=== PATIENT | female | born 1980 | race Caucasian/White ===

== ENCOUNTER 2020-08-16 17:00 | Emergency (ER) | payer MEDICAID, OTHER ==
[~2020-08-16] VITALS: Ht 157.5 cm; Wt 57.6 kg
[2020-08-16 18:10] LABS: Basophils # (auto) 0 10 ^3/uL (0-0.2); Basophils % (auto) 0.6 % (0.0-2.0); Eosinophils # (auto) 0.1 10 ^3/uL (0-0.8); Hematocrit 38.9 % (36.0-46.0); Hemoglobin 13.1 g/dL (12.2-16.2); Lymphocytes # (auto) 2.1 10 ^3/uL (0.4-5.4); Lymphocytes % (auto) 37.6 % (10.0-50.0); Mean Corpuscular Hemoglobin 34.9 pg (28.0-32.0); Mean Corpuscular Hgb Conc. 33.7 g/dL (32.0-36.0); Mean Corpuscular Volume 103.7 fL (80.0-100.0); Monocytes # (auto) 0.7 10 ^3/uL (0-1.3); Monocytes % (auto) 12.5 % (0.0-12.0); Neutrophils # (auto) 2.7 10 ^3/uL (1.6-8.6); Neutrophils % (auto) 48.3 % (37.0-80.0); Nucleated Red Blood Cells % 0.1 %; Platelet Count (auto) 233 10^3/uL (140-450); Red Blood Cells 3.75 10^6/uL (4.0-5.20); Red Cell Distribution Width 12.9 % (11.8-14.3); White Blood Cell 5.6 10^3/uL (4.4-10.8)
[2020-08-16 18:28] LABS: Albumin 3.5 g/dL (3.4-5.0); Calcium 8.5 mg/dL (8.5-10.1); Potassium 3.5 mmol/L (3.5-5.1)
[2020-08-16 18:31] LABS: BUN/Creatinine Ratio 9.5; Bilirubin, Total 2.1 mg/dL (0.2-1.0); Total Protein 7.7 g/dL (6.4-8.2)
[2020-08-16] MEDS ORDERED: ONDANSETRON HCL 4 MG/2 ML VIAL IV ONE (20:15)
[2020-08-16] MEDS ORDERED: SODIUM CHLORIDE 0.9% 1,000 ML IV ONE (20:15)
[2020-08-16 21:19] LABS: INR 0.97 (0.9-1.15); Partial Thromboplastin Time 24.2 sec (23.0-31.2)
[2020-08-16 22:37] LABS: Urine Bacteria FEW /hpf (None Seen); Urine Blood 3+ /uL (Negative); Urine Hyaline Cast FEW /lpf (0 - 2); Urine Mucus FEW (None Seen); Urine Specific Gravity 1.025 (1.001-1.035); Urine WBC 32 /hpf (0 - 5)
[2020-08-16] MEDS ORDERED: cefTRIAXone 1GM/50ML D5W 50 ML IV ONE (22:45)
[2020-08-16 22:47] LABS: Alcohol, Urine < 3.0 mg/dL (0-10); Amphetamine Screen, Urine NEGATIVE (NEGATIVE); Barbiturate Scree,Urine NEGATIVE (NEGATIVE); Benzodiazephine Screen, Urine NEGATIVE (NEGATIVE); Cannabinoid Screen, Urine NEGATIVE (NEGATIVE); Cocaine Screen, Urine NEGATIVE (NEGATIVE); Phencyclidine Screen, Urine NEGATIVE (NEGATIVE)
[2020-08-16 23:02] LABS: Opiate Scree,Urine NEGATIVE (NEGATIVE)
[2020-08-16 23:08] VITALS: BP 129/68
== END 2020-08-17 | disposition home or self-care (01) ==
LOC: EDBD 17:00 → ER 17:00
DX: N39.0 Urinary tract infection, site not specified (principal); R79.89 Other specified abnormal findings of blood chemistry; G47.00 Insomnia, unspecified
CPT/HCPCS: 36415; 74176; 80053; 80307; 81001; 81025; 84702; 85025; 85610; 85730; 87086; 96361; 96365; 96375; 99284; J0696; J2405; J7030

== ENCOUNTER 2021-07-28 07:22 | Emergency (ER) | payer MEDICAID ==
[~2021-07-28] VITALS: Ht 167.6 cm; Wt 77.1 kg
[2021-07-28] MEDS ORDERED: LIDOCAINE 2%HCL (LOCAL ANESTH.) INJ 20ML MDV ID ONE (08:45)
[2021-07-28] MEDS ORDERED: NEOMYCIN-BACITRACIN-POLYM UNITDOSE PKG TOP OINT TOP ONE (08:45)
[2021-07-28 08:46] LABS: Basophils # (auto) 0.1 10 ^3/uL (0-0.2); Basophils % (auto) 0.7 % (0.0-2.0); Eosinophils # (auto) 0 10 ^3/uL (0-0.8); Eosinophils % (auto) 0.1 % (0.0-7.0); Hemoglobin 14.7 g/dL (12.2-16.2); Lymphocytes # (auto) 2.5 10 ^3/uL (0.4-5.4); Lymphocytes % (auto) 20.9 % (10.0-50.0); Mean Corpuscular Hemoglobin 30.8 pg (28.0-32.0); Mean Corpuscular Hgb Conc. 34.2 g/dL (32.0-36.0); Mean Corpuscular Volume 90.1 fL (80.0-100.0); Monocytes # (auto) 0.7 10 ^3/uL (0-1.3); Monocytes % (auto) 5.8 % (0.0-12.0); Neutrophils # (auto) 8.6 10 ^3/uL (1.6-8.6); Neutrophils % (auto) 72.5 % (37.0-80.0); Nucleated Red Blood Cells % 0.1 %; Red Blood Cells 4.77 10^6/uL (4.0-5.20); Red Cell Distribution Width 13.3 % (11.8-14.3); White Blood Cell 11.8 10^3/uL (4.4-10.8)
[2021-07-28 09:04] LABS: Alanine Aminotransferase 57 U/L (13-56); Albumin 4.4 g/dL (3.4-5.0); Bilirubin, Direct < 0.1 mg/dL (0-0.2); Calcium 9.2 mg/dL (8.5-10.1); Magnesium 2.5 mg/dL (1.6-2.6)
[2021-07-28 09:05] LABS: Salicylate < 1.7 mg/dL (2.8-20.0)
[2021-07-28 09:06] LABS: Albumin 4.4 g/dL (3.4-5.0); BUN/Creatinine Ratio 14.7; Calcium 9.4 mg/dL (8.5-10.1)
[2021-07-28 09:07] LABS: Alkaline Phosphatase 87 U/L (45-117); Aspartate Aminotransferase 27 U/L (15-37); Bilirubin, Total 0.4 mg/dL (0.2-1.0)
[2021-07-28 09:09] LABS: Bilirubin, Total 0.4 mg/dL (0.2-1.0); Potassium 4.2 mmol/L (3.5-5.1); Total Protein 7.9 g/dL (6.4-8.2)
[2021-07-28 09:14] LABS: Acetaminophen < 2.0 ug/mL (10-30)
[2021-07-28 09:29] LABS: Urine Bacteria NONE SEEN /hpf (None Seen); Urine Blood Negative /uL (Negative); Urine Mucus FEW (None Seen); Urine Specific Gravity 1.021 (1.001-1.035); Urine WBC 1 /hpf (0 - 5)
[2021-07-28 09:50] LABS: Alcohol, Urine < 3.0 mg/dL (0-10); Amphetamine Screen, Urine NEGATIVE (NEGATIVE); Barbiturate Scree,Urine NEGATIVE (NEGATIVE); Benzodiazephine Screen, Urine POSITIVE (NEGATIVE); Cannabinoid Screen, Urine NEGATIVE (NEGATIVE); Cocaine Screen, Urine NEGATIVE (NEGATIVE); Opiate Scree,Urine NEGATIVE (NEGATIVE); Phencyclidine Screen, Urine NEGATIVE (NEGATIVE)
[2021-07-28 15:50] LABS: Albumin 3.9 g/dL (3.4-5.0); Calcium 8.9 mg/dL (8.5-10.1); Potassium 4.3 mmol/L (3.5-5.1)
[2021-07-28 15:52] LABS: BUN/Creatinine Ratio 16.9
[2021-07-28 15:55] LABS: Bilirubin, Total 0.4 mg/dL (0.2-1.0); Total Protein 7.3 g/dL (6.4-8.2)
[2021-07-28] MEDS: OXcarbazepine 300 MG TAB PO SCH (22:10)
[2021-07-29] MEDS ORDERED: ACETAMINOPHEN 325 MG TAB PO ONE (02:30)
[2021-07-29] MEDS: SERTRALINE HCL 50 MG TAB PO SCH (10:19)
[2021-07-29] MEDS: OXcarbazepine 300 MG TAB PO SCH ×2 (10:19→21:46)
[2021-07-29] MEDS: lamoTRIgine 100 MG TAB PO SCH (10:20)
[2021-07-29] MEDS ORDERED: HYDROcodone-ACET 5/325MG TAB PO ONE ×2 (12:45→21:45)
[2021-07-29] MEDS: [UNRECOGNIZED DRUG - OTHER] PO SCH ×2 (14:03→21:45)
[2021-07-30] MEDS: [UNRECOGNIZED DRUG - OTHER] PO SCH ×3 (08:44→23:09)
[2021-07-30] MEDS ORDERED: HYDROcodone-ACET 5/325MG TAB PO ONE ×3 (09:00→18:45)
[2021-07-30] MEDS: SERTRALINE HCL 50 MG TAB PO SCH (09:26)
[2021-07-30] MEDS: lamoTRIgine 100 MG TAB PO SCH (09:27)
[2021-07-30] MEDS: OXcarbazepine 300 MG TAB PO SCH ×2 (09:27→23:09)
[2021-07-30] MEDS ORDERED: LORazepam 0.5 MG TAB PO ONE (23:00)
[2021-07-31] MEDS: [UNRECOGNIZED DRUG - OTHER] PO SCH ×2 (08:27→14:00)
[2021-07-31] MEDS: OXcarbazepine 300 MG TAB PO SCH (08:28)
[2021-07-31] MEDS: SERTRALINE HCL 50 MG TAB PO SCH (08:28)
[2021-07-31] MEDS: lamoTRIgine 100 MG TAB PO SCH (08:28)
[2021-07-31] MEDS ORDERED: LORazepam 0.5 MG TAB PO PRN (08:30)
[2021-07-31] MEDS: HYDROcodone-ACET 5/325MG TAB PO PRN ×2 (08:33→18:32)
[2021-07-31 18:58] VITALS: BP 119/83
== END 2021-07-31 20:17 ==
LOC: EDBD 07:22 → ER 07:22
DX: S61.512A Laceration without foreign body of left wrist, initial encounter (principal); S61.511A Laceration without foreign body of right wrist, initial encounter; S51.012A Laceration without foreign body of left elbow, initial encounter; T36.1X2A Poisoning by cephalosporins and other beta-lactam antibiotics, intentional self-harm, initial encounter; T42.6X2A Poisoning by other antiepileptic and sedative-hypnotic drugs, intentional self-harm, initial encounter; T39.392A Poisoning by other nonsteroidal anti-inflammatory drugs [NSAID], intentional self-harm, initial encounter; G89.29 Other chronic pain; M54.9 Dorsalgia, unspecified; F32.9 Major depressive disorder, single episode, unspecified; Z20.822 Contact with and (suspected) exposure to COVID-19; W26.8XXA Contact with other sharp object(s), not elsewhere classified, initial encounter; Y93.89 Activity, other specified; Y92.89 Other specified places as the place of occurrence of the external cause; Y99.8 Other external cause status
CPT/HCPCS: 12004; 36415; 80053; 80076; 80307; 80320; 80329; 81001; 82310; 83735; 85025; 87426; 93005; 99285; C1887; C1894; 99152; 99153

== ENCOUNTER 2021-12-10 12:31 | Emergency (ER) | payer MEDICAID ==
[~2021-12-10] VITALS: Ht 157.5 cm; Wt 68.1 kg
[2021-12-10] MEDS ORDERED: LIDOCAINE 1% (LOCAL ANESTH.) PF 5ml SDV ID ONE (13:15)
[2021-12-10 14:00] LABS: Salicylate < 1.7 mg/dL (2.8-20.0)
[2021-12-10 14:02] LABS: Acetaminophen < 2.0 ug/mL (10-30)
[2021-12-10 14:11] LABS: Amphetamine Screen, Urine NEGATIVE (NEGATIVE); Barbiturate Scree,Urine NEGATIVE (NEGATIVE); Benzodiazephine Screen, Urine NEGATIVE (NEGATIVE); Cannabinoid Screen, Urine NEGATIVE (NEGATIVE); Cocaine Screen, Urine NEGATIVE (NEGATIVE); Opiate Scree,Urine NEGATIVE (NEGATIVE); Phencyclidine Screen, Urine NEGATIVE (NEGATIVE)
[2021-12-10] MEDS ORDERED: LIDOCAINE 1% HCL (LOCAL ANESTH.) INJ 20ML MDV ONE (17:24)
[2021-12-10] MEDS ORDERED: OXcarbazepine 300 MG TAB PO ONE (22:00)
[2021-12-10] MEDS ORDERED: QUEtiapine FUMARATE 100 MG TAB PO ONE (22:00)
[2021-12-10] MEDS ORDERED: lamoTRIgine 100 MG TAB PO ONE (22:00)
[2021-12-10] MEDS ORDERED: HYDROcodone-ACET 5/325MG TAB PO ONE (22:00)
[2021-12-11] MEDS ORDERED: HYDROcodone-ACET 10/325MG TAB PO ONE ×2 (08:30→12:30)
[2021-12-11] MEDS: CLINDAMYCIN HCL 150 MG CAP PO SCH ×3 (09:04→22:17)
[2021-12-11] MEDS: CEPHALEXIN 250 MG CAP PO SCH ×3 (09:04→23:00)
[2021-12-11] MEDS ORDERED: QUEtiapine FUMARATE 100 MG TAB PO ONE (18:30)
[2021-12-11] MEDS ORDERED: LORazepam 0.5 MG TAB PO ONE (18:30)
[2021-12-11] MEDS ORDERED: lamoTRIgine 100 MG TAB PO ONE (21:45)
[2021-12-11] MEDS ORDERED: OXcarbazepine 300 MG TAB PO ONE (21:45)
[2021-12-11] MEDS ORDERED: HYDROcodone-ACET 5/325MG TAB PO ONE (21:45)
[2021-12-12] MEDS: CLINDAMYCIN HCL 150 MG CAP PO SCH ×3 (06:31→21:39)
[2021-12-12] MEDS: CEPHALEXIN 250 MG CAP PO SCH ×3 (06:41→21:39)
[2021-12-12] MEDS: HYDROcodone-ACET 10/325MG TAB PO PRN ×4 (09:19→21:39)
[2021-12-12] MEDS ORDERED: VENLAFAXINE HCL 37.5MG TABLET PO ONE (10:00)
[2021-12-12] MEDS ORDERED: OXcarbazepine 300 MG TAB PO ONE (10:00)
[2021-12-12] MEDS ORDERED: lamoTRIgine 100 MG TAB PO ONE (10:00)
[2021-12-12] MEDS: QUEtiapine FUMARATE 100 MG TAB PO SCH (21:39)
[2021-12-13] MEDS ORDERED: LORazepam 0.5 MG TAB PO ONE (02:00)
[2021-12-13] MEDS: HYDROcodone-ACET 10/325MG TAB PO PRN ×3 (06:32→19:01)
[2021-12-13] MEDS: CEPHALEXIN 250 MG CAP PO SCH ×3 (06:35→22:12)
[2021-12-13] MEDS: CLINDAMYCIN HCL 150 MG CAP PO SCH ×3 (06:35→22:13)
[2021-12-13] MEDS ORDERED: lamoTRIgine 100 MG TAB PO ONE (15:15)
[2021-12-13] MEDS ORDERED: VENLAFAXINE HCL 37.5MG TABLET PO ONE (15:15)
[2021-12-13] MEDS ORDERED: OXcarbazepine 300 MG TAB PO ONE (15:15)
[2021-12-13] MEDS: PROPRANOLOL HCL 20 MG TAB PO PRN (15:32)
[2021-12-13] MEDS: QUEtiapine FUMARATE 100 MG TAB PO SCH (22:13)
[2021-12-14] MEDS: HYDROcodone-ACET 10/325MG TAB PO PRN ×4 (02:41→22:15)
[2021-12-14] MEDS: CLINDAMYCIN HCL 150 MG CAP PO SCH ×3 (09:12→22:14)
[2021-12-14] MEDS: CEPHALEXIN 250 MG CAP PO SCH ×3 (09:13→22:14)
[2021-12-14] MEDS ORDERED: LORazepam 0.5 MG TAB PO ONE (13:30)
[2021-12-14] MEDS ORDERED: lamoTRIgine 100 MG TAB ONE (13:53)
[2021-12-14] MEDS ORDERED: OXcarbazepine 300 MG TAB ONE (13:53)
[2021-12-14] MEDS ORDERED: VENLAFAXINE HCL 37.5mg XR cap PO ONE (13:53)
[2021-12-14] MEDS: PROPRANOLOL HCL 20 MG TAB PO PRN (20:38)
[2021-12-14] MEDS: OXcarbazepine 300 MG TAB PO SCH (22:14)
[2021-12-14] MEDS: QUEtiapine FUMARATE 100 MG TAB PO SCH (22:15)
[2021-12-15] MEDS: CLINDAMYCIN HCL 150 MG CAP PO SCH ×3 (06:34→22:21)
[2021-12-15] MEDS: CEPHALEXIN 250 MG CAP PO SCH ×3 (06:34→22:22)
[2021-12-15] MEDS: HYDROcodone-ACET 10/325MG TAB PO PRN ×4 (06:35→19:56)
[2021-12-15] MEDS ORDERED: VENLAFAXINE HCL 37.5MG TABLET PO SCH (10:00)
[2021-12-15] MEDS: OXcarbazepine 300 MG TAB PO SCH ×2 (10:15→22:21)
[2021-12-15] MEDS: lamoTRIgine 100 MG TAB PO SCH (10:18)
[2021-12-15] MEDS ORDERED: VENLAFAXINE HCL 37.5mg XR cap PO ONE (10:30)
[2021-12-15] MEDS: PROPRANOLOL HCL 20 MG TAB PO PRN (15:14)
[2021-12-15] MEDS: QUEtiapine FUMARATE 100 MG TAB PO SCH (22:22)
[2021-12-16] MEDS: CLINDAMYCIN HCL 150 MG CAP PO SCH ×3 (06:21→20:32)
[2021-12-16] MEDS: CEPHALEXIN 250 MG CAP PO SCH ×3 (06:23→20:32)
[2021-12-16] MEDS: HYDROcodone-ACET 10/325MG TAB PO PRN ×3 (06:26→20:31)
[2021-12-16] MEDS: OXcarbazepine 300 MG TAB PO SCH ×2 (10:38→20:32)
[2021-12-16] MEDS: VENLAFAXINE HCL 37.5mg XR cap PO SCH (10:38)
[2021-12-16] MEDS: PROPRANOLOL HCL 20 MG TAB PO PRN ×2 (10:39→16:37)
[2021-12-16] MEDS: lamoTRIgine 100 MG TAB PO SCH (13:52)
[2021-12-16] MEDS: QUEtiapine FUMARATE 100 MG TAB PO SCH (20:32)
[2021-12-17] MEDS: CLINDAMYCIN HCL 150 MG CAP PO SCH ×2 (06:14→17:00)
[2021-12-17] MEDS: CEPHALEXIN 250 MG CAP PO SCH ×2 (06:15→17:00)
[2021-12-17] MEDS: HYDROcodone-ACET 10/325MG TAB PO PRN ×2 (06:15→12:47)
[2021-12-17 12:37] VITALS: BP 111/78
[2021-12-17] MEDS: OXcarbazepine 300 MG TAB PO SCH (12:46)
[2021-12-17] MEDS: VENLAFAXINE HCL 37.5mg XR cap PO SCH (12:47)
[2021-12-17] MEDS: lamoTRIgine 100 MG TAB PO SCH (12:50)
== END 2021-12-17 18:18 | disposition left against medical advice (07) ==
LOC: ER 12:31 → EDBD 12:31 → ER 12-17 18:18
DX: S41.112A Laceration without foreign body of left upper arm, initial encounter (principal); S41.111A Laceration without foreign body of right upper arm, initial encounter; S11.91XA Laceration without foreign body of unspecified part of neck, initial encounter; R45.851 Suicidal ideations; Z20.822 Contact with and (suspected) exposure to COVID-19; Z90.49 Acquired absence of other specified parts of digestive tract; X78.9XXA Intentional self-harm by unspecified sharp object, initial encounter; Y93.89 Activity, other specified; Y92.89 Other specified places as the place of occurrence of the external cause; Y99.8 Other external cause status
CPT/HCPCS: 12004; 36415; 80307; 80320; 80329; 87426; 99285; J2001